=== PATIENT | male | born 1995 | race Caucasian/White ===

== ENCOUNTER 2020-09-09 10:27 | Emergency (ER) | payer OTHER ==
[~2020-09-09] VITALS: Ht 182.9 cm; Wt 115.7 kg
[~2020-09-09 10:27] MED LIST: ACETAMINOPHEN-1 EAC1 PO; CLOTRIM ANTIFUN15 GM TP; NOHOMEMEDICATIONS
[2020-09-09] MEDS ORDERED: MEDROLDOSEPACK PO (11:13)
[2020-09-09] MEDS ORDERED: PROAIR HFA8.5 GM INH (11:13)
[2020-09-09 11:37] VITALS: BP 122/68
== END 2020-09-09 11:38 | disposition home or self-care (01) ==
LOC: M.ERS 10:27
DX: J06.9 Acute upper respiratory infection, unspecified (principal); Z20.822 Contact with and (suspected) exposure to COVID-19; Z88.1 Allergy status to other antibiotic agents; Z90.49 Acquired absence of other specified parts of digestive tract